=== PATIENT | male | born 1975 | race Hispanic/Latino ===

== ENCOUNTER 2023-07-19 01:39 | Emergency (ER) | payer SELFPAY ==
[2023-07-19 03:05] LABS: Absolute Eosinophils 0.1 K/uL (0-0.5); Absolute Lymphocytes (CBC) 2.2 K/uL (0.7-4.9); Absolute Monocytes 0.8 K/uL (0.1-1.3); Absolute Neutrophil 6.5 K/uL (1.8-8.0); Basophils % 0.4 % (0-1.3); Eosinophils % 0.6 % (0-4.4); Hematocrit 44.8 % (39.6-49.0); Lymphocytes % 23.3 % (15.3-44.8); MCH 28.6 pg (27.0-35.0); MCHC 33.5 g/dL (32.0-36.0); MCV 85.4 fL (80-100); MPV 9.1 fL (7.6-11.3); Monocytes % 8.1 % (3.3-12.3); Neutrophils % 67.6 % (41.7-73.7); PT Prothrombin Time 10.4 SECONDS (9.5-12.5); Platelets 325 thou/uL (152-406); Protime INR 0.94; RBC Red Blood Cell Count 5.25 M/uL (4.33-5.43); Red Cell Distribution Width 12.6 % (12.1-15.2)
[2023-07-19 03:24] LABS: Albumin 3.2 g/dL (3.4-5.0); Albumin/Globulin Ratio 0.9 (1.1-1.8); Bilirubin Direct 0.1 mg/dL (0-0.2); Bilirubin Indirect, Calculated 0.4 mg/dL (0.2-0.8); Bilirubin Total 0.5 mg/dL (0.2-1.0); Globulin 3.4 g/dL (2.3-3.5); Protein, Total 6.6 g/dL (6.4-8.2); Troponin High Sensitivity 17.6 pg/mL (<58.9)
[2023-07-19] MEDS ORDERED: INSULIN REGULAR (HUMAN) 100 UNIT/ML ONE (03:37)
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
[2023-07-19 05:24] VITALS: BP 129/82; TEMP 97.8; O2SAT 97
--- NOTE | 2023-07-19 11:19 | RAD REPORT ---
EXAM DESCRIPTION: XR Chest, 1 View CLINICAL HISTORY: The patient is 48 years old and is Male; CHEST PAIN TECHNIQUE: Frontal view of the chest. COMPARISON: No relevant prior studies available. FINDINGS: Lungs: Mildly prominent interstitial markings. No consolidation. Pleural space: Unremarkable. No pneumothorax. Heart: Unremarkable. Mediastinum: Unremarkable. Normal mediastinal contour. Bones/joints: No acute findings. IMPRESSION: No acute findings in the chest. Electronically signed by: Jonah Carlson MD 07/19/2023 03:00 AM CDT Due to temporary technical issues with the PACS/Fluency reporting system, reports are being signed by the in house radiologist without review as a courtesy to ensure prompt reporting. The interpreting r adiologist is fully responsible for the content of the report.
--- NOTE | 2023-07-20 15:42 | EKG ---
Test Date: 2023-07-19 Test Time: 02:10:44 Attorney Recruiter: WILMER MEASUREMENT RESULTS: Intervals: Rate: 83 AR: 170 QRSD: 110 QT: 358 QTc: 420 Anton: P: 75 AR: 170 QRS: -33 T: 60 INTERPRETIVE STATEMENTS: Normal sinus rhythm Left axis deviation Abnormal ECG No previous ECG available for comparison Electronically Signed On 07-20-23 15:39:32 CDT by Severiano Persaud
== END 2023-07-19 05:13 | disposition home or self-care (01) ==
LOC: ER 01:39
DX: E11.65 Type 2 diabetes mellitus with hyperglycemia (principal); I10 Essential (primary) hypertension
CPT/HCPCS: 36415; 71045; 80048; 80076; 82947; 83735; 83880; 84484; 85025; 85610; 93005; J1815